=== PATIENT | female | born 1975 | race Caucasian/White ===

== ENCOUNTER 2022-12-06 15:13 | Outpatient (CLI) | payer OTHER, SELFPAY ==
--- NOTE | 2022-12-06 15:20 | CRLHL7_ITS ---
For Patients: As a result of the Century Cures Act, medical imaging exams and procedure reports are released immediately into your electronic medical record. You may view this report before your referring provider. If you have questions, please contact your health care provider. BILATERAL DIGITAL SCREENING MAMMOGRAM WITH COMPUTER-AIDED DETECTION AND TOMOSYNTHESIS CLINICAL HISTORY: Routine screening exam. COMPARISON: 11/26/2020, 11/25/2020. TECHNIQUE: Digital mammogram in CC and MLO projections including computer-aided detection (CAD). Tomosynthesis was used. BREAST COMPOSITION: The breasts are extremely dense, which lowers the sensitivity of mammography FINDINGS: RIGHT Breast: No suspicious findings. LEFT Breast: 3.5 cm mass-like area adjacent to the LEFT nipple, probable fibrocystic change. IMPRESSION: LEFT breast asymmetry/mass. RECOMMENDATIONS: Additional mammographic views of the LEFT breast including 3D spot compression CC/MLO. LEFT breast ultrasound may also be required. The [facility] will contact the patient for follow-up. A lay language report of this examination will be provided to the patient. BI-RADS Category 0: Incomplete: Need Additional Imaging Evaluation and/or Prior Mammograms for Comparison. Dictated by Loy Zaragoza MD @ 12/07/2022 11:37:30 AM/hao ARTI/Dictated by: Loy Zaragoza MD @ 12/07/2022 11:37:00 AM (Electronically Signed)
== END 2022-12-06 15:14 | disposition home or self-care (01) ==
LOC: MAMMO 15:16
PROVIDERS: PCP Family Medicine; Visit Provider Family Medicine
DX: Z12.31 Encounter for screening mammogram for malignant neoplasm of breast (principal); N63.20 Unspecified lump in the left breast, unspecified quadrant; R92.2 Inconclusive mammogram
CPT/HCPCS: 77067

== ENCOUNTER 2022-12-14 07:52 | Outpatient (CLI) | payer OTHER, SELFPAY ==
--- NOTE | 2022-12-14 07:45 | CRLHL7_ITS ---
For Patients: As a result of the Cures Act, medical imaging exams and procedure reports are released immediately into your electronic medical record. You may view this report before your referring provider. If you have questions, please contact your health care provider. DIGITAL DIAGNOSTIC LEFT MAMMOGRAM USING TOMOSYNTHESIS AND COMPUTER-AIDED DETECTION LEFT BREAST ULTRASOUND CLINICAL HISTORY: LEFT breast mass/asymmetry. COMPARISON: 12/06/2022. TECHNIQUE: Digital LEFT mammogram in two projections. Tomosynthesis and CAD utilized. Real-time ultrasound imaging of LEFT breast with imaging documentation. BREAST COMPOSITION: The breasts are extremely dense, which lowers the sensitivity of mammography. FINDINGS: 3D spot compression CC/MLO LEFT breast mammogram images submitted. There is a circumscribed density adjacent to the LEFT nipple laterally without architectural distortion or suspicious calcifications. Targeted LEFT breast ultrasound performed at 3 o`clock 2 cm from the nipple. In this location there is a simple anechoic cyst with increased through-transmission measuring 3.2 x 1.2 x 3.0 cm. IMPRESSION: Simple cyst LEFT breast 3 o`clock 2 cm from the nipple measuring 3.2 cm. No evidence of malignancy. RECOMMENDATIONS: Annual BILATERAL screening mammography. Results and recommendations discussed with the patient. BI-RADS Category 2: Benign A lay language report of this examination will be provided to the patient. Dictated by Loy Zaragoza MD @ 12/14/2022 10:39:44 AM /Dictated by: Loy Zaragoza MD @ 12/14/2022 10:39:00 AM (Electronically Signed)
--- NOTE | 2022-12-14 08:15 | CRLHL7_ITS ---
For Patients: As a result of the Cures Act, medical imaging exams and procedure reports are released immediately into your electronic medical record. You may view this report before your referring provider. If you have questions, please contact your health care provider. PLEASE SEE DIGITAL DIAGNOSTIC LEFT MAMMOGRAM PERFORMED SAME DAY CRL:[email or web address] [email or web address]/Dictated by: Loy Zaragoza MD @ 12/14/2022 10:39:00 AM (Electronically Signed)
== END 2022-12-14 07:53 | disposition home or self-care (01) ==
LOC: MAMMO 07:53
PROVIDERS: PCP Family Medicine; Visit Provider Family Medicine
DX: N63.20 Unspecified lump in the left breast, unspecified quadrant (principal); R92.8 Other abnormal and inconclusive findings on diagnostic imaging of breast
CPT/HCPCS: 76642; 77065; G0279

== ENCOUNTER 2024-10-21 15:09 | Outpatient (CLI) | payer OTHER, SELFPAY ==
--- NOTE | 2024-10-21 15:20 | CRLHL7_ITS ---
For Patients: As a result of the Cures Act, medical imaging exams and procedure reports are released immediately into your electronic medical record. You may view this report before your referring provider. If you have questions, please contact your health care provider. BILATERAL SCREENING MAMMOGRAM WITH COMPUTER-AIDED DETECTION AND TOMOSYNTHESIS TECHNIQUE: CC and MLO views were obtained. These mammographic images have been obtained using full-field digital technique. These mammographic images were interpreted with the benefit of computer-aided detection. Breast Tomosynthesis was used in this interpretation. COMPARISON FILM: 12/06/22, 11/25/20. FINDINGS: The breasts are extremely dense, which lowers the sensitivity of mammography. IMPRESSION: There is no radiographic evidence for malignancy. ASSESSMENT: BI-RADS Category 2: Benign RECOMMENDATION: Routine screening mammogram in 1 year. A lay language report of this examination will be provided to the patient. Gorge Mcnair M.D. Diagnostic/Nuclear Medicine Radiologist [email or web address] APRIL/[email or web address] SP/Dictated by: Gorge Mcnair MD @ 10/23/2024 12:18:00 PM (Electronically Signed)
== END 2024-10-21 15:10 | disposition home or self-care (01) ==
LOC: MAMMO 15:13
PROVIDERS: Visit Provider Nurse Practitioner Family
DX: Z12.31 Encounter for screening mammogram for malignant neoplasm of breast (principal); R92.343 Mammographic extreme density, bilateral breasts
CPT/HCPCS: 77063; 77067